=== PATIENT | male | born 1990 | race Caucasian/White ===

== ENCOUNTER 2022-06-20 10:19 | Emergency (ER) | payer SELFPAY ==
[~2022-06-20] VITALS: Ht 190.5 cm; Wt 129.6 kg
[2022-06-20 12:05] VITALS: BP 146/91
== END 2022-06-20 12:19 | disposition home or self-care (01) ==
LOC: M ED 10:19
DX: Q66.89 Other specified congenital deformities of feet (principal); M25.572 Pain in left ankle and joints of left foot